=== PATIENT | male | born 1955 | race Caucasian/White ===

== ENCOUNTER 2016-10-27 08:36 | Inpatient (IN) | payer OTHER ==
[~2016-10-27] VITALS: Ht 172.7 cm; Wt 74.0 kg
[2016-10-27] MEDS ORDERED: NORC1TAB4 PO (08:53)
[2016-10-27] MEDS ORDERED: NS 1,000 ML IV ONE (09:15)
[2016-10-27] MEDS ORDERED: ONDANSETRON 4MG/2ML VIAL (J2405) IV ONE (09:15)
[2016-10-27] MEDS: MORPHINE 2 MG/ML 1ML SYRINGE IV PRN ×3 (09:39→18:57)
[2016-10-27 09:50] LABS: BASO % 0.1 % (0.0-1.0); EOS % 0.1 % (0.0-3.0); LARGE UNSTAINED CELL # 0.1 K/mm3 (0.0-0.4); LARGE UNSTAINED CELL % 0.5 % (0.0-4.0); LYMPH # 0.9 K/mm3 (1.5-4.5); LYMPH % 7.7 % (24.0-44.0); MEAN CORPUSCULAR HEMOGLOBIN 32.5 pg (27.0-33.0); MEAN CORPUSCULAR HGB CONC 34.6 g/dl (32.0-36.5); MONO # 0.4 K/mm3 (0.0-0.8); MONO % 3.3 % (0.0-5.0); NEUTROPHILS # 9.4 K/mm3 (1.8-7.7); NEUTROPHILS % 88.3 % (36.0-66.0); PLATELET COUNT, AUTOMATED 182 k/mm3 (150-450); RED CELL DISTRIBUTION WIDTH 12.3 % (11.5-14.5); WHITE BLOOD COUNT 10.6 K/mm3 (4.0-10.0)
[2016-10-27 09:57] LABS: INR 0.92
[2016-10-27 10:24] LABS: ALBUMIN 4.1 GM/DL (3.2-5.2); ALBUMIN/GLOBULIN RATIO 1.14 (1.00-1.93); ALKALINE PHOSPHATASE 50 U/L (45-117); ALT/SGPT 25 U/L (12-78); AMYLASE 51 U/L (25-115); ANION GAP 6 MEQ/L (8-16); AST/SGOT 17 U/L (15-37); BILIRUBIN,DIRECT 0.2 MG/DL (0.0-0.2); BILIRUBIN,TOTAL 0.8 MG/DL (0.2-1.0); BLOOD UREA NITROGEN 14 MG/DL (7-18); CALCIUM LEVEL 8.8 MG/DL (8.8-10.2); CARBON DIOXIDE LEVEL 29 MEQ/L (21-32); CHLORIDE LEVEL 105 MEQ/L (98-107); CREATININE FOR GFR 0.81 MG/DL (0.70-1.30); GLOMERULAR FILTRATION RATE > 60.0 (>49); GLUCOSE, FASTING 112 MG/DL (80-110); POTASSIUM SERUM 3.9 MEQ/L (3.5-5.1); SODIUM LEVEL 140 MEQ/L (136-145); TOTAL PROTEIN 7.7 GM/DL (6.4-8.2)
--- NOTE | 2016-10-27 10:26 | REP ---
ABDOMINAL SERIES: Four views. HISTORY: Abdominal pain. FINDINGS: Upright chest radiograph shows no evidence of infiltrate. There is minimal linear fibrosis in the right base. Cardiomediastinal silhouette is unremarkable. No free subdiaphragmatic air is seen. There is old post-traumatic change in the scapula on the left. Supine and erect views of the abdomen demonstrate a left hip arthroplasty and old healed fractures of the left iliac crest left superior pubic ramus and left inferior pubic ramus. There is a dextroconvex curvature in the lumbar spine and there are degenerative disc changes. Air-fluid level is seen in air and fluid filled dilated small bowel loops in the central abdomen. There is air and stool in the right colon. There is some air in the rectosigmoid region. No free air is seen. No mass or organomegaly is seen. IMPRESSION: Small bowel air-fluid levels. Cannot exclude small bowel obstruction. Post-traumatic changes left pelvis, dextroconvex scoliotic curvature. No free air. Signed by Tito Oakes MD 10/27/2016 12:40 P
[2016-10-27] MEDS ORDERED: ISOVUE-370 76% 100ML VIAL (Q9967) As Ordered ONE (10:41)
[2016-10-27] MEDS ORDERED: B COTAB3 PO (10:51)
[2016-10-27] MEDS ORDERED: DIAZ1CON PO (10:51)
[2016-10-27] MEDS ORDERED: VITA10006 PO (10:51)
[2016-10-27] MEDS ORDERED: VALI5TAB PO (10:52)
[2016-10-27] MEDS ORDERED: LR 1,000 ML IV ONE (11:30)
[2016-10-27] MEDS ORDERED: D5W/LR 1,000 ML IV ONE (11:30)
[2016-10-27] MEDS ORDERED: ONDANSETRON 4MG/2ML VIAL (J2405) IV PRN (11:30)
[2016-10-27] MEDS ORDERED: MORPHINE 4 MG/ML 1ML SYRINGE IV ONE (11:30)
[2016-10-27] MEDS ORDERED: MORPHINE 4 MG/ML 1ML SYRINGE IV PRN (11:30)
[2016-10-27] MEDS ORDERED: METOCLOPRAMIDE INJ 10MG/2ML VIAL (J2765) IV PRN (11:30)
[2016-10-27] MEDS ORDERED: PROMETHAZINE INJ 25 MG/ML VIAL (J2550) IV PRN (11:30)
--- NOTE | 2016-10-27 11:45 | REP ---
CT ABDOMEN AND PELVIS WITH IV BUT WITHOUT ORAL CONTRAST: HISTORY: History small bowel obstruction, abdominal pain. Comparison radiographs are from this date. No comparison CT. CT CONTRAST DOSE: 100 mL of Isovue-[address] FINDINGS: Digital preliminary featherer radiograph demonstrates dilated air and fluid-filled bowel loops in the left midabdomen. Old posttraumatic changes left pelvis. Left hip arthroplasty. Axial CT images show bibasilar linear opacity consistent with subsegmental platelike atelectasis, right lower lobe greater than left lower lobe. No pleural effusion or definite infiltrate is seen. The liver and the spleen are normal in size and homogeneous in texture. There are multiple calcified gallstones in the gallbladder. No pericholecystic fluid or gallbladder wall thickening is appreciated. There is mild focal scarring in the upper pole of the right kidney with a tiny cortical cyst in the upper pole of the right kidney. No hydronephrosis is seen. No adrenal lesion is seen. The pancreas is unremarkable. No retroperitoneal mass or adenopathy is seen. Normal caliber aorta is seen. A normal appendix is seen in the right lower quadrant. CT images demonstrate multiple moderately dilated small bowel loops throughout the left and right central abdomen. There are a few loops of distal ileum which are normal in caliber implying a point of transition. No mass or obstructive lesion is identified. There is a minimal amount of ascites in the right lower quadrant adjacent to the distal ileal loops. No evidence of free intraperitoneal air, abscess, or mass. There is spray artifact from the hip prosthetic components. Old bony deformity healed fractures left pelvis. Degenerative disc disease in the lumbar spine. IMPRESSION: Mid to distal ileal small bowel obstruction pattern, no obstructive etiologies seen. Normal appendix. Minimal ascitic fluid in the right lower quadrant. Cholelithiasis. Minimal subsegmental discoid atelectasis in the lower lobes of the lungs. Signed by Tito Oakes MD 10/27/2016 12:41 P
[2016-10-27] MEDS: LR 1,000 ML IV SCH ×2 (11:48→21:08)
[2016-10-27] MEDS: PANTOPRAZOLE 40MG INJ (PROTONIX) (C9113) IV SCH (11:49)
[2016-10-27 12:00] VITALS: BP 143/95
[2016-10-27] MEDS: KETOROLAC 30 MG/ML VIAL (J1885) IV PRN ×2 (14:05→21:09)
[2016-10-27 15:40] VITALS: BP 123/88
[2016-10-27 18:55] VITALS: BP 116/68
[2016-10-27 22:00] VITALS: BP 115/70
[2016-10-28] MEDS: MORPHINE 2 MG/ML 1ML SYRINGE IV PRN ×4 (00:15→19:54)
[2016-10-28 02:00] VITALS: BP 106/69
[2016-10-28] MEDS: KETOROLAC 30 MG/ML VIAL (J1885) IV PRN (04:53)
[2016-10-28] MEDS: LR 1,000 ML IV SCH ×3 (04:53→19:54)
[2016-10-28 06:00] VITALS: BP 137/95
[2016-10-28 07:23] LABS: MEAN CORPUSCULAR HEMOGLOBIN 31.5 pg (27.0-33.0); MEAN CORPUSCULAR HGB CONC 33.9 g/dl (32.0-36.5); MEAN CORPUSCULAR VOLUME 93.1 fl (80.0-96.0); RED CELL DISTRIBUTION WIDTH 12.4 % (11.5-14.5); WHITE BLOOD COUNT 7.3 K/mm3 (4.0-10.0)
[2016-10-28 07:40] LABS: ANION GAP 7 MEQ/L (8-16); BLOOD UREA NITROGEN 15 MG/DL (7-18); CALCIUM LEVEL 7.9 MG/DL (8.8-10.2); CARBON DIOXIDE LEVEL 27 MEQ/L (21-32); CHLORIDE LEVEL 109 MEQ/L (98-107); CREATININE FOR GFR 0.69 MG/DL (0.70-1.30); GLOMERULAR FILTRATION RATE > 60.0 (>49); GLUCOSE, FASTING 91 MG/DL (80-110); POTASSIUM SERUM 3.9 MEQ/L (3.5-5.1); SODIUM LEVEL 143 MEQ/L (136-145)
--- NOTE | 2016-10-28 09:18 | REP ---
Abdominal series: Three views. History: Small bowel obstruction. Comparison study October 27, 2016. Findings: Nasogastric tube has been passed with its tip in the gastric fundus. There is bilateral lower lobe plate-like atelectasis which is more pronounced than on yesterday's radiograph. There is no evidence of free subdiaphragmatic air or new infiltrate. Supine and erect views of the abdomen demonstrate multiple dilated loops of air and fluid-filled small bowel in the left upper and left central abdomen. There is a dilated small bowel loop in the right central abdomen demonstrating mural edema. There is some formed stool in the right and left colon and a small quantity of air is seen in the rectum. Impression: Persistent small bowel obstruction pattern. Dilated loops are somewhat more numerous with more gas. The degree of distension is unchanged. Signed by Tito Oakes MD 10/28/2016 12:47 P
[2016-10-28] MEDS: PANTOPRAZOLE 40MG INJ (PROTONIX) (C9113) IV SCH (09:28)
[2016-10-28 10:00] VITALS: BP 128/73
[2016-10-28 14:00] VITALS: BP 131/75
[2016-10-28 18:00] VITALS: BP 143/89
[2016-10-28] MEDS: DOCUSATE SOD LIQ 100MG/10ML UDC NG SCH (19:54)
--- NOTE | 2016-10-28 20:10 | ECGEPIP ---
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
[2016-10-28 22:00] VITALS: BP 133/78
[2016-10-29 02:00] VITALS: BP 113/70
[2016-10-29] MEDS: LR 1,000 ML IV SCH (04:26)
[2016-10-29 05:36] LABS: MEAN CORPUSCULAR HEMOGLOBIN 32.6 pg (27.0-33.0); MEAN CORPUSCULAR HGB CONC 34.8 g/dl (32.0-36.5); MEAN CORPUSCULAR VOLUME 93.9 fl (80.0-96.0); RED CELL DISTRIBUTION WIDTH 12.2 % (11.5-14.5); WHITE BLOOD COUNT 6.6 K/mm3 (4.0-10.0)
[2016-10-29 05:41] LABS: ANION GAP 7 MEQ/L (8-16); BLOOD UREA NITROGEN 15 MG/DL (7-18); CALCIUM LEVEL 8.1 MG/DL (8.8-10.2); CARBON DIOXIDE LEVEL 29 MEQ/L (21-32); CHLORIDE LEVEL 108 MEQ/L (98-107); CREATININE FOR GFR 0.64 MG/DL (0.70-1.30); GLOMERULAR FILTRATION RATE > 60.0 (>49); GLUCOSE, FASTING 83 MG/DL (80-110); POTASSIUM SERUM 3.7 MEQ/L (3.5-5.1); SODIUM LEVEL 144 MEQ/L (136-145)
[2016-10-29 06:00] VITALS: BP 121/78
[2016-10-29] MEDS: DOCUSATE SOD LIQ 100MG/10ML UDC NG SCH ×2 (08:25→19:56)
[2016-10-29] MEDS: PANTOPRAZOLE 40MG INJ (PROTONIX) (C9113) IV SCH (08:25)
[2016-10-29] MEDS ORDERED: MOM 30ML SUSPENSION UDC PO SCH (09:00)
[2016-10-29] MEDS ORDERED: MOM 30ML SUSPENSION UDC PO PRN (09:45)
[2016-10-29 10:00] VITALS: BP 117/75
[2016-10-29] MEDS: KCL 20MEQ IN D5/0.45NS 1000ML 1,000 ML IV SCH ×2 (10:20→19:56)
[2016-10-29 14:00] VITALS: BP 121/80
[2016-10-29 18:00] VITALS: BP 113/69
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
[2016-10-29 22:00] VITALS: BP 122/78
[2016-10-30 02:00] VITALS: BP 113/67
[2016-10-30] MEDS: KCL 20MEQ IN D5/0.45NS 1000ML 1,000 ML IV SCH (05:47)
[2016-10-30 06:00] VITALS: BP 127/65
[2016-10-30 06:19] LABS: MEAN CORPUSCULAR HEMOGLOBIN 31.8 pg (27.0-33.0); MEAN CORPUSCULAR HGB CONC 34.4 g/dl (32.0-36.5); MEAN CORPUSCULAR VOLUME 92.4 fl (80.0-96.0); RED CELL DISTRIBUTION WIDTH 12.2 % (11.5-14.5); WHITE BLOOD COUNT 6.6 K/mm3 (4.0-10.0)
[2016-10-30 06:35] LABS: ANION GAP 7 MEQ/L (8-16); BLOOD UREA NITROGEN 7 MG/DL (7-18); CALCIUM LEVEL 7.9 MG/DL (8.8-10.2); CARBON DIOXIDE LEVEL 26 MEQ/L (21-32); CHLORIDE LEVEL 109 MEQ/L (98-107); CREATININE FOR GFR 0.62 MG/DL (0.70-1.30); GLOMERULAR FILTRATION RATE > 60.0 (>49); GLUCOSE, FASTING 115 MG/DL (80-110); POTASSIUM SERUM 3.6 MEQ/L (3.5-5.1); SODIUM LEVEL 142 MEQ/L (136-145)
[2016-10-30] MEDS: DOCUSATE SOD LIQ 100MG/10ML UDC NG SCH ×2 (07:30→20:03)
[2016-10-30] MEDS: PANTOPRAZOLE 40MG INJ (PROTONIX) (C9113) IV SCH (07:31)
[2016-10-30 10:00] VITALS: BP 122/76
--- NOTE | 2016-10-30 13:32 | REP ---
PA and lateral chest: Comparisons are 10/28/2016 and 10/27/2078 CT abdomen pelvis 10/27/2016. There is bibasilar discoid atelectasis, similar to the prior studies. The lung lewis otherwise clear. Cardiac size is normal. The kevin, mediastinum, and bony thorax are unremarkable. There are multiple air-fluid levels within bowel loops in the visualized upper abdomen. These were also present previously. Signed by Doroteo Godoy MD 10/30/2016 01:23 P
[2016-10-30 14:00] VITALS: BP 123/77
[2016-10-30 18:00] VITALS: BP 142/70
[2016-10-30 22:00] VITALS: BP 147/85
[2016-10-31 02:00] VITALS: BP 110/65
[2016-10-31 06:00] VITALS: BP 100/60
[2016-10-31 06:00] LABS: MEAN CORPUSCULAR HEMOGLOBIN 31.7 pg (27.0-33.0); MEAN CORPUSCULAR HGB CONC 33.9 g/dl (32.0-36.5); MEAN CORPUSCULAR VOLUME 93.4 fl (80.0-96.0); RED CELL DISTRIBUTION WIDTH 12.2 % (11.5-14.5); WHITE BLOOD COUNT 6.6 K/mm3 (4.0-10.0)
[2016-10-31 06:11] LABS: ANION GAP 7 MEQ/L (8-16); BLOOD UREA NITROGEN 4 MG/DL (7-18); CALCIUM LEVEL 7.8 MG/DL (8.8-10.2); CARBON DIOXIDE LEVEL 26 MEQ/L (21-32); CHLORIDE LEVEL 110 MEQ/L (98-107); GLOMERULAR FILTRATION RATE > 60.0 (>49); GLUCOSE, FASTING 96 MG/DL (80-110); POTASSIUM SERUM 3.6 MEQ/L (3.5-5.1); SODIUM LEVEL 143 MEQ/L (136-145)
[2016-10-31] MEDS: DOCUSATE SOD LIQ 100MG/10ML UDC NG SCH (08:41)
[2016-10-31] MEDS: PANTOPRAZOLE 40MG INJ (PROTONIX) (C9113) IV SCH (08:41)
[2016-10-31 10:00] VITALS: BP 133/72
== END 2016-10-31 15:11 | disposition home or self-care (01) | DRG 247 ==
LOC: M ED 09:51 → M ED INP 11:26 → M MSPAV 15:59
PROVIDERS: ADMIT Surgery; ATTEND Surgery
DX: K56.60 Unspecified intestinal obstruction (principal); F41.9 Anxiety disorder, unspecified

== ENCOUNTER → 2019-10-25 | Outpatient (CLI) | payer MEDICARE ==
[~2019-10-25] MED LIST: B COTAB3 PO; DIAZ1CON PO; NORC1TAB7 PO; VALI5TAB PO; VITA10006 PO
--- NOTE | 2019-10-25 08:20 | REP ---
Clinical: Shortness of breath with recent deep venous thrombosis. Technique: Axial noncontrast images from the thoracic inlet to the upper abdomen with coronal and sagittal re-formations. Findings: Lung lewis are relatively well aerated and mild right basilar atelectasis is appreciated along with trace left basilar atelectasis. No focal consolidation. No effusion or pneumothorax. No significant nodule or mass lesion. Tracheobronchial tree is patent. No significant adenopathy noted. Mediastinum demonstrates atherosclerotic changes without aortic aneurysm or cardiomegaly. No pericardial effusion. Musculoskeletal structures are intact. Impression: Mild plate-like atelectasis at the right base along with trace left basilar fibroatelectatic change. No focal consolidation, effusion, or adenopathy. Electronically Signed by Andrew Kuo MD 10/25/2019 08:11 A
--- NOTE | 2019-10-25 08:28 | REP ---
Clinical: Shortness of breath with history of prior deep venous thrombosis . Technique: Ramirez scale and color Doppler evaluation of the left lower extremity using linear high frequency transducer. Findings: Left lower extremity ultrasound examination demonstrates occlusive thrombus extending from the popliteal vein/trifurcation cranially to the level of the mid femoral vein. Incidental patent duplicated mid to distal femoral vein noted. Impression: Occlusive thrombus extending from the mid femoral vein to the popliteal vein/trifurcation. Electronically Signed by Andrew Kuo MD 10/25/2019 08:19 A
== END ==
LOC: M RAD 07:35
PROVIDERS: ATTEND Internal Medicine Hematology & Oncology
DX: R06.02 Shortness of breath (principal); Z86.718 Personal history of other venous thrombosis and embolism

== ENCOUNTER → 2019-11-07 | Outpatient (RCR) | payer MEDICARE ==
[~2019-11-07] MED LIST changes: +VITA-243 PO; +VITACAP8 PO; +XARE20TA PO
== END | disposition home or self-care (01) ==
LOC: M PT 12:08
PROVIDERS: ATTEND Internal Medicine Hematology & Oncology
DX: Z51.89 Encounter for other specified aftercare (principal); I82.90 Acute embolism and thrombosis of unspecified vein

== ENCOUNTER → 2019-11-12 | Outpatient (POV) | payer MEDICARE ==
--- NOTE | 2019-11-13 09:16 | IRCOV ---
[facility] IR Consult Office Visit IR Consult Office Visit DATE: November 12, 2019 REASON FOR CONSULTATION/CHIEF COMPLAINT: left leg DVT HISTORY OF PRESENT ILLNESS: Patient presented with extreme left leg swelling foot to mid thigh 6 weeks ago, diagnosed with a DVT and started on xarelto. He complains of on going swelling and discomfort. He was prescribed compression therapy but can't tolerate it. No prior history of DVT or left leg swelling. Event was unprovoked. No history of cancer or trauma. No chest pain, shortness of breath or hemoptysis. Tolerating, anticoagulation without bleeding. ALLERGIES: Please see below. HOME MEDICATIONS: Please see below. PAST MEDICAL HISTORY: 1. Recurrent small bowel obstructions 2. Chronic back problems 3. History of anxiety 4.History of radiculopathy and operative intervention for cervical neck Past Surgical History: Left hip arthroplasty 2010 Cervical spine fusion 2017 FAMILY HISTORY: no history of DVT SOCIAL HISTORY: smoker. occasional alcohol. denies drugs. REVIEW OF SYSTEMS: Otherwise negative PHYSICAL EXAMINATION: no video available on patient side LABORATORY DATA: non recent Imaging: I personally reviewed the us venous study performed october 25 2019. There is occlusive thrombus in the popliteal and tibial veins. The common femoral and proximal femoral veins are patent. . ASSESSMENT/PLAN: 64 male with prolonged discomfort and swelling in the left lower extremity despite 6 weeks anticoagulation. The main problem is in the popliteal and tibial veins. I suspect iliofemoral segment will be free of clot. However, given patients extreme discomfort and increased swelling, we can do venogram and asses iliofemoral drainage, clot extension, followed by thrombectomy if needed. The fpc results of below knee thrombectomy are equivocal but this can be done at the same session if needed. We will schedule the patient for the procedure. I spent 30 minutes in consultation with the patient. Thank you for this referral. CC Dr Gordon. Med onc Allergies Coded Allergies: Penicillins (Verified Allergy, Intermediate, Rash, 11/12/19) Home Medications Scheduled Ascorbic Acid (Vitamin C), 1,000 MG PO DAILY, (Reported) Rivaroxaban (Xarelto), 20 MG PO DAILY, (Reported) Rivaroxaban (Xarelto), 1 TAB PO DAILY Vitamin B Complex (Vitamin B Complex), 1 CAP PO DAILY, (Reported) Scheduled PRN Diazepam (Valium), 5 MG PO QID PRN for ANXIETY, (Reported) Hydrocodone/Acetaminophen ([place] 5-325 Tablet), 1 TAB PO QID PRN for PAIN, (Reported) CARISSA LAWSON MD November 13, 2019 09:16
== END ==
LOC: M TMIRPOV 10:15
PROVIDERS: ATTEND Radiology Diagnostic Radiology
DX: I82.402 Acute embolism and thrombosis of unspecified deep veins of left lower extremity (principal); F17.210 Nicotine dependence, cigarettes, uncomplicated; Z79.01 Long term (current) use of anticoagulants; Z96.642 Presence of left artificial hip joint; Z98.1 Arthrodesis status

== ENCOUNTER 2019-11-18 08:19 | Outpatient (RCR) | payer MEDICARE | END 2019-12-08 | LOC: M PT 08:19 | PROVIDERS: ATTEND Internal Medicine Hematology & Oncology | DX: I89.0 Lymphedema, not elsewhere classified (principal) ==

== ENCOUNTER → 2019-11-21 | Outpatient (CLI) | payer MEDICARE ==
[~2019-11-21] MED LIST changes: +ALTEPLASE 2MG/2ML VIAL As Ordered ONE; +ISOVUE-300 61% 50ML VIAL As Ordered ONE; +LIDOCAINE 1% MDV 20ML VIAL As Ordered ONE; +MIDAZOLAM INJ 2MG/2ML VIAL (J2250 PER 1MG) As Ordered ONE; +NORCO, ANEXSIA 5/325MG TABLET (HYDROcodone/ACETAMINOPHEN) As Ordered ONE; +NORCO, ANEXSIA 5/325MG TABLET (HYDROcodone/ACETAMINOPHEN) PO ONE; +PROMETHAZINE INJ 25 MG/ML VIAL (J2550) As Ordered ONE; +diphenhydrAMINE 50MG/ML VIAL (J1200) As Ordered ONE; +fentaNYL 100 MCG/2 ML INJECTION (J3010) As Ordered ONE
[2019-11-21 08:58] LABS: HEMATOCRIT 44.1 % (42.0-52.0); HEMOGLOBIN 14.4 g/dl (13.5-17.5); MEAN CORPUSCULAR HEMOGLOBIN 30.8 pg (27.0-33.0); MEAN CORPUSCULAR HGB CONC 32.7 g/dl (32.0-36.5); MEAN CORPUSCULAR VOLUME 94.4 fl (80.0-96.0); PLATELET COUNT, AUTOMATED 230 10^3/uL (150-450); RED BLOOD COUNT 4.67 10^6/uL (4.30-6.10); WHITE BLOOD COUNT 6.1 10^3/uL (4.0-10.0)
[2019-11-21 09:17] LABS: INR 2.04; PROTHROMBIN TIME 22.8 SECONDS (11.8-14.0)
[2019-11-21 09:21] LABS: BLOOD UREA NITROGEN 15 MG/DL (7-18); CALCIUM LEVEL 8.5 MG/DL (8.8-10.2); CARBON DIOXIDE LEVEL 29 MEQ/L (21-32); CHLORIDE LEVEL 106 MEQ/L (98-107); CREATININE FOR GFR 0.89 MG/DL (0.70-1.30); GLOMERULAR FILTRATION RATE > 60.0 (>49); GLUCOSE, FASTING 89 MG/DL (70-100); POTASSIUM SERUM 3.8 MEQ/L (3.5-5.1); SODIUM LEVEL 139 MEQ/L (136-145)
--- NOTE | 2019-11-21 09:22 | IRHP ---
[facility] IR Pre-Procedure H & P General Date of Service: November 21, 2019 Procedure: Same Day Surgery Interval History and Physical I have seen the patient and reviewed last H & P performed within 30 days. There is no significant interval change. History of Present Illness Chief Complaint The patient is a 64-year-old male admitted with a reason for visit of DVT. PRE-PROCEDURE DIAGNOSIS: left leg DVT Examination: neuro alert oriented moving all 4 extremities. Respiratory. breathing normally at rest. Heart: normal rate Abdomen non distended extremities: Left lower extremity: minimal left leg swelling compared to right, more pedal then calf or thigh. Skin color normal. Temperature normal. Pulses dp palpable. Right lower extremity. Skin color normal. temperature normal, no swelling or erythema. Pulses palpable. Allergies Coded Allergies: Penicillins (Verified Allergy, Intermediate, Rash, 11/12/19) Home Medications Scheduled Ascorbic Acid (Vitamin C), 1,000 MG PO DAILY, (Reported) Rivaroxaban (Xarelto), 20 MG PO DAILY, (Reported) Rivaroxaban (Xarelto), 1 TAB PO DAILY Vitamin B Complex (Vitamin B Complex), 1 CAP PO DAILY, (Reported) Scheduled PRN Diazepam (Valium), 5 MG PO QID PRN for ANXIETY, (Reported) Hydrocodone/Acetaminophen ([place] 5-325 Tablet), 1 TAB PO QID PRN for PAIN, (Reported) VS, I&O, 24H, Fishbone Vital Signs/I&O Vital Signs Date Time Temp Pulse Resp B/P (MAP) Pulse Ox O2 Delivery O2 Flow Rate FiO2 11/21/19 08:25 97.6 78 16 99 Room Air Laboratory Data 24H LABS Laboratory Tests 2 11/21/19 08:27: Nucleated Red Blood Cells % (auto) 0.0, Prothrombin Time 22.8H, Prothromb Time International Ratio 2.04 CBC/BMP Laboratory Tests 11/21/19 08:27 CARISSA LAWSON MD November 21, 2019 09:22
--- NOTE | 2019-11-21 11:23 | POST-OPPD ---
Postoperative Procedure Note Date Of Procedure: November 21, 2019 Time Of Procedure: 11:20 PREOPERATIVE DIAGNOSIS: LLE DVT. Pain POSTOPERATIVE DIAGNOSIS: same FINDINGS: occlusive left popliteal and distal FV thrombus with collateral filling of superficial system. No november thurner. PROCEDURE: popliteal and femoral vein mechanical thrombectomy. SURGEON: Alexandru ANESTHESIA: mod sed ESTIMATED BLOOD LOSS: < 5 ml COMPLICATIONS: none POSTOPERATIVE CONDITION: stable CARISSA LAWSON MD November 21, 2019 11:23
[2019-11-21 13:15] VITALS: BP 114/74
--- NOTE | 2019-11-25 14:02 | REP ---
IR Left leg venography. IR Left iliac venography. IR Mechanical thrombectomy of left lower extremity deep vein thrombosis. IR Moderate sedation. IR Ultrasound guided left popliteal vein access. Clinical information: Occlusive left lower extremity deep vein thrombosis with increased swelling and pain. Symptoms refractory to weeks of anticoagulation. Physician: Dr. Horvath. Procedure: The patient was advised of the benefits, risks and alternatives of the procedure and informed consent was obtained. The time-out was performed with verification of the patient's name MRN, site of procedure and type of procedure to be performed. The patient was positioned in the prone position on the angiographic table. The site was prepped and draped in the usual sterile fashion. Moderate sedation was performed by the physician including the presence of an independent trained observer who assisted in monitoring the patient's level of consciousness and physiologic status. Following the administration of fentanyl and Versed, the physician spent 90 minutes of continuous face to face time with the patient. A coordinator of online programs radiograph reveals no gross abnormality. Ultrasound of the left popliteal fossa demonstrates occlusive thrombus in the left popliteal vein. A micropuncture needle was used under ultrasound guidance to access the peripheral left popliteal vein. An 018 wire was advanced, under fluoroscopy guidance into the femoral vein and the micropuncture needle was exchanged for a micro sheath. A venogram was performed and this demonstrates complete occlusion of the popliteal vein and mid to distal femoral vein. Filling of the greater saphenous vein and other collaterals. Patent proximal femoral vein. A Glidewire was advanced through the micro sheath and used under fluoroscopy guidance to access the left iliac vein. The micro sheath was exchanged over the wire for a 6-Yemeni vascular sheath. A penumbra CAT6 mechanical thrombectomy device was inserted over the wire under fluoroscopy guidance to the proximal femoral vein. A venogram was performed which demonstrates patent flow in the proximal femoral vein and occlusive thrombus in the mid and distal femoral vein. The CAT6 was used to perform mechanical thrombectomy in the distal femoral vein and the popliteal vein. Intermittent injection of contrast demonstrates improved flow in the vein. The catheter was removed over the wire. A venogram was performed through the sheath and this demonstrates improved, faster flow in the popliteal vein which is no longer completely occluded. Good flow in the proximal femoral vein. Repeat thrombectomy was performed in the distal femoral vein and popliteal vein. A follow-up venogram was performed which demonstrates improved flow in the popliteal and femoral vein. The catheter was then removed over the wire. The diagnostic catheter was advanced over the wire into the femoral vein. A central venogram was performed which demonstrates patent common femoral, left iliac vein and IVC. No significant left iliac vein stenosis. Catheter and sheath were removed, pressure held and hemostasis achieved. A sterile dressing was applied to the site. The patient tolerated the procedure well and was returned to PRU in stable condition. EBL: Less than 50 ml. Complications: None. Conclusion: 1. Left lower extremity venogram demonstrates complete occlusion of the left popliteal vein and distal femoral vein with reflux into the superficial venous system. 2. Successful left popliteal vein and distal femoral vein thrombectomy with improved flow. 3. Central venogram is negative for May-Thurner syndrome. Thank you this referral. Cc Dr. Gorodn. Electronically Signed by Celeste Horvath MD 11/25/2019 02:00 P
== END ==
LOC: M IRPRO 08:13
PROVIDERS: ATTEND Radiology Diagnostic Radiology
DX: I82.432 Acute embolism and thrombosis of left popliteal vein (principal); I82.412 Acute embolism and thrombosis of left femoral vein; I70.92 Chronic total occlusion of artery of the extremities; Z88.0 Allergy status to penicillin
CPT/HCPCS: 37187; 75820; 80048; 85027; 85610; 99152; 99153; C1757; C1769; C1887; C1894; J1200; J1644; J2250; J2997; J3010; Q9967

== ENCOUNTER → 2019-12-03 | Outpatient (POV) | payer MEDICARE ==
[~2019-12-03] MED LIST changes: -ALTEPLASE 2MG/2ML VIAL As Ordered ONE; -ISOVUE-300 61% 50ML VIAL As Ordered ONE; -LIDOCAINE 1% MDV 20ML VIAL As Ordered ONE; -MIDAZOLAM INJ 2MG/2ML VIAL (J2250 PER 1MG) As Ordered ONE; -NORCO, ANEXSIA 5/325MG TABLET (HYDROcodone/ACETAMINOPHEN) As Ordered ONE; -NORCO, ANEXSIA 5/325MG TABLET (HYDROcodone/ACETAMINOPHEN) PO ONE; -PROMETHAZINE INJ 25 MG/ML VIAL (J2550) As Ordered ONE; -diphenhydrAMINE 50MG/ML VIAL (J1200) As Ordered ONE; -fentaNYL 100 MCG/2 ML INJECTION (J3010) As Ordered ONE
--- NOTE | 2019-12-04 09:48 | IRPN ---
[facility] IR Progress Note IR Progress Note DATE: December 03, 2019 Consent was given by patient for this telephone call. Length of call was 5 minutes. FOLLOW-UP: Status post left leg venogram and popliteal and femoral thrombectomy for occlusive DVT. Patient doing well. He is able to bend the knee and he is active. Continues on Xarelto. Denies chest pain, shortness of breath, fevers or chills. ON EXAMINATION: No video on patient side. IMPRESSION: Doing well status post left leg venous thrombectomy. Recommend leg elevation and compression therapy. Continue anti coagulation. No further follow up scheduled unless initiated by patient and or referring provider. Thank you for this referral CC Dr. Gordon Allergies Coded Allergies: Penicillins (Verified Allergy, Intermediate, Rash, 11/12/19) CARISSA LAWSON MD December 04, 2019 09:48
== END ==
LOC: M TMIRPOV 11:34
PROVIDERS: ATTEND Radiology Diagnostic Radiology
DX: Z48.812 Encounter for surgical aftercare following surgery on the circulatory system (principal)

== ENCOUNTER 2021-08-23 09:42 | Emergency (ER) | payer MEDICARE ==
[~2021-08-23] VITALS: Ht 172.7 cm; Wt 90.9 kg
[~2021-08-23 09:42] MED LIST changes: +COVI30VI IM; +HYDR-4571 PO
[2021-08-23] MEDS ORDERED: NS 1,000 ML IV ONE (10:15)
[2021-08-23] MEDS ORDERED: MORPHINE 4 MG/ML 1ML VIAL/SYRINGE (J2270) IV ONE (10:15)
[2021-08-23 10:40] LABS: BASO % 0.5 % (0.0-1.0); EOS # 0.1 10^3/uL (0.0-0.5); EOS % 2.1 % (0.0-3.0); HEMATOCRIT 42.1 % (42.0-52.0); HEMOGLOBIN 14.1 g/dl (13.5-17.5); LYMPH # 1.9 10^3/uL (1.5-5.0); LYMPH % 33.3 % (24.0-44.0); MEAN CORPUSCULAR HEMOGLOBIN 31.2 pg (27.0-33.0); MEAN CORPUSCULAR HGB CONC 33.5 g/dl (32.0-36.5); MEAN CORPUSCULAR VOLUME 93.1 fl (80.0-96.0); MONO # 0.5 10^3/uL (0.0-0.8); MONO % 8.4 % (2.0-8.0); NEUTROPHILS # 3.2 10^3/uL (1.5-8.5); NEUTROPHILS % 55.3 % (36.0-66.0); PLATELET COUNT, AUTOMATED 217 10^3/uL (150-450); RED BLOOD COUNT 4.52 10^6/uL (4.30-6.10); WHITE BLOOD COUNT 5.7 10^3/uL (4.0-10.0)
[2021-08-23] MEDS ORDERED: ISOVUE-370 76% 100ML VIAL As Ordered ONE (10:49)
[2021-08-23 11:11] LABS: ALBUMIN 3.7 GM/DL (3.2-5.2); BILIRUBIN,DIRECT 0.1 MG/DL (0.0-0.2); BILIRUBIN,TOTAL 0.5 MG/DL (0.2-1.0); TOTAL PROTEIN 6.8 GM/DL (6.4-8.2)
[2021-08-23 13:40] VITALS: BP 171/80
== END 2021-08-23 13:48 | disposition home or self-care (01) ==
LOC: M ED 09:42
DX: M16.11 Unilateral primary osteoarthritis, right hip (principal); M54.50 Low back pain, unspecified; F10.10 Alcohol abuse, uncomplicated; F17.200 Nicotine dependence, unspecified, uncomplicated; Z88.0 Allergy status to penicillin
CPT/HCPCS: 73502; 74177; 80047; 80076; 81001; 83690; 85025; 96361; 96374; 99284; J2270; Q9967